=== PATIENT | female | born 1945 | race Caucasian/White ===

== ENCOUNTER 2023-09-18 12:28 | Emergency (ER) | payer OTHER, SELFPAY ==
[2023-09-18 12:30] VITALS: BP 144/57; BMI 27.3
[2023-09-18 13:50] LABS: COVID-19 Antigen Negative (Negative)
[2023-09-18] MEDS: TYLENOL 650 MG PO (14:04)
[2023-09-18] MEDS: DUONEB 3 ML INH (14:05)
[2023-09-18] MEDS: DECADRON 6 MG IV (14:05)
[2023-09-18 14:12] LABS: % Basophils 0.3 % (0-2); % Eosinophils 0.1 % (0-6); % Immature Granulocytes 0.5 % (0-0.5); % Lymphocytes 4.2 % (20.5-51.1); % Monocytes 3.3 % (1.7-9.3); % Neutrophils 91.6 % (42.2-75.2); Absolute Immature Granulocytes 0.1 10^3/uL (0-0.05); Absolute Lymphocytes 0.6 10^3/uL (1.2-3.4); Absolute Monocytes 0.5 10^3/uL (0.1-0.6); Absolute Neutrophils 12.8 10^3/uL (1.4-6.5); Hematocrit 37.4 % (37.0-47.0); Hemoglobin 12.7 g/dL (12.0-16.0); Mean Corpuscular Hgb 31.4 pg (27.0-31.0); Mean Corpuscular Volume 92.6 fL (81.0-99.0); Mean Platelet Volume 9.7 fL (7.4-10.4); Nucleated Red Blood Cells % 0 %; Platelet Count 382 10^3/uL (130-400); Red Blood Cell Count 4.04 10^6/uL (4.20-5.40); Red Cell Dist. Width 13.7 % (11.5-14.5)
[2023-09-18 14:26] LABS: ALT (SGPT) 16 U/L (0-35); AST (SGOT) 23 U/L (14-36); Albumin 3.8 g/dl (3.5-5.0); Alkaline Phosphatase 98 U/L (38-126); Blood Urea Nitrogen 10 mg/dl (7-17); Calcium 9.5 mg/dl (8.4-10.2); Carbon Dioxide 26 mmol/L (22-30); Chloride 103 mmol/L (98-107); Estimated Creatinine Clearance 60 ml/min; Glucose 116 mg/dl (70-99); Potassium 4.2 mmol/L (3.5-5.1); Sodium 135 mmol/L (135-145); Total Bilirubin 0.8 mg/dl (0.2-1.3); Total Protein 7.3 g/dl (6.3-8.2); eGFR > 60.00
--- NOTE | 2023-09-18 15:21 | ED.GENMED ---
History of Present Illness
General
Chief Complaint: Cough
Source: patient
Exam Limitations: none
Time Seen by Provider: 09/18/23 12:51
Nursing documentation reviewed up to this point in time: agreed with
Travel History
Have you had any contact with someone who has COVID-19?: No
Do you have any symptoms of coronavirus? Fever > 100 degrees, chills, cough, shortness of breath, sore throat, loss of taste or smell, muscle aches, or headache?: No
History of Present Illness
History of Present Illness:
pt is a 78 y/oi F with h/o HTN
was in [place] a few weeks ago and got sick while there with sore throat, nasal congestion, cough
she tried to get cough medicine but it was difficult
came home and has continued to cough frequently and bring up thick yellow mucus
she has also had some diarrhea but that stopped a few days ago
she saw her PCP yesterday who thought she sounded like pneumonia and treated her with augmentin. she has only had one dose so far but she really has been coughing and not sleeping an dfeeling wiped out so she was recommended to come in
she has also red crusted eyes and some drainage
she has had low grade fever as wel
denies shortness of breath, chest pain, vomiting
lack of appetite
no h/o copd or wheezing/smoknig
Past History
Past History
ED Past Medical History: HTN and Other
ED Past Surgical History: Orthopedic and Other
Social History
Tobacco: Non-smoker
Living: alone
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
Review of Systems
Review of Systems
Allergies reviewed?: Yes
All Other Systems: Not applicable
Phy Exam
Physical Exam
Physical Exam:
GENERAL: Alert , in no apparent distress
EYE: pupils equal and reactive
NECK: Supple
ENT: o/p clr, mmm.
CARDIAC: Regular rate and rhythm .no edema
LUNGS: rhonchi R > L wheezy spastic cough, productive
no dyspnea
ABDOMEN: Soft, without focal tenderness, no r/g, no cvat, normal bowel sounds
NEUROLOGICAL: Alert and oriented, no focal neuro deficits
SKIN: Warm and dry, skin intact.
MUSCULOSKELETAL: No edema, well perfused. neg franca's sign
PSYCH: Normal and appropriate interaction.
Course
Orders/Labs/Results
Orders:
Orders
09/18/23 12:34
Chest [CR Chest - 2 Views ] Urgent
Comment:
Reason For Exam: cough
09/18/23 13:05
COVID-19 Antigen Urgent
Source: Nasal Swab
Influenza A+B Rapid Molecular Urgent
MELLY Source: Nasal Swab
Specimen Description:
09/18/23 13:49
Sputum Culture [Respiratory Culture/Gram Stain] Urgent
MELLY Source: Sputum
Specimen Description:
Date Specimen was Collected: 09/18/23
Time Specimen was Collected: 13:47
09/18/23 13:56
Dexamethasone Sod Phosphate [Decadron] 6 mg IV NOW STA
Ipratropium/Albuterol Sulfate [Duoneb] 3 ml INH R NOW ONE
09/18/23 14:00
Complete Blood Count/With Diff Urgent
Comprehensive Metabolic Panel Urgent
09/18/23 14:02
Acetaminophen [Tylenol] 650 mg PO NOW STA
09/18/23 15:27
Azithromycin [Zithromax] 500 mg PO NOW STA
09/18/23 15:28
Albuterol [ProAIR HFA INHALER] 2 puff INH R NOW STA
09/18/23 15:32
Albuterol [ProAIR HFA INHALER] 2 puff INH R NOW STA
Abnormal Lab Results
09/18/23
14:00
WBC 14.0 H 10^3/uL
(4.8-10.8)
RBC 4.04 L 10^6/uL
(4.20-5.40)
MCH 31.4 H pg
(27.0-31.0)
Abs Immat Gran (auto) 0.1 H 10^3/uL
(0-0.05)
Absolute Neuts (auto) 12.8 H 10^3/uL
(1.4-6.5)
Absolute Lymphs (auto) 0.6 L 10^3/uL
(1.2-3.4)
Neutrophils % 91.6 H %
(42.2-75.2)
Lymphocytes % 4.2 L %
(20.5-51.1)
Glucose 116 H mg/dl
(70-99)
09/18/23 14:00
09/18/23 14:00
Vital Signs
Initial and Last Documented VS:
Initial Vital Signs
Temp Pulse Resp BP Pulse Ox
99.7 F 105 16 144/57 98
09/18/23 12:30 09/18/23 12:30 09/18/23 12:30 09/18/23 12:30 09/18/23 12:30
Last Documented Vital Signs
Temp Pulse Resp BP Pulse Ox
99.7 F 96 22 131/87 95
09/18/23 12:30 09/18/23 16:00 09/18/23 16:00 09/18/23 16:00 09/18/23 16:00
MDM/Problems Addressed
Differential Diagnosis Includes:
pneumonia, asthmatic bronchitis, less likely PE
MDM/Problems Addressed:
78 y/o F with no h/o chronic lung disease
here with cough and URI sxs x 12 days
did travel long fluight
has not had any chest pain
has a lot of productivitiy of cough
had some diarrhea that got better
went to pcp yesterday finally and got rx for augmentin, took 1 dose so far and medrol dose george
spastic cough and feels lousy/fatigued
on exam borderline fever
mild tachy likely related to fever
normal pulse ox
wheezing and rhonchi in lungs more on R --> suspect early PNA
cxr indep reviewed by me and neg
pt's flu and covid neg
luns sound better after duoneb
she really wants to go home and feels safe doing so
offered admission but she delinced.
at this point, would fully treat for PNA with adding zithromax
probiotic
albuterol inhaler and spacer
continues teroids
given dec x 1 dose here
ambulatory pulse ox normal and pt is not tachypenic
LOW THRESHOLD FOR RETURNING, PT AGREES.
*Critical Care Note
Total Time (30-74mins, 75-104mins- exclusive of procedures): Not Applicable
ED Attending Note
-
Portions of this chart may have been created with voice recognition software.� Occasional wrong word or��sound alike� substitutions may have occurred due to the inherent limitations of voice recognition software.
Discharge Plan
Departure
Patient Disposition: Home (Routine Discharge)
Date of Disposition: 09/18/23
Time of Disposition: 15:22
Patient with high blood pressure during this ER visit?: No
Condition: Fair
Covid-19: Not Applicable
Discharge Problem:
Asthmatic bronchitis
Instructions: Acute Bronchitis, Adult (DC)
Prescriptions:
New
azithromycin [Zithromax] 250 mg tablet
250 mg PO DAILY Qty: 4 0RF
albuterol sulfate [ProAir HFA] 90 mcg/actuation HFA aerosol inhaler
1 puff inhalation Q4HPRN PRN (Reason: shortness of breath) Qty: 6.7 0RF
polymyxin B sulf-trimethoprim 10,000 unit- 1 mg/mL drops
1 drp ophthalmic (eye) QID 5 Days Qty: 10 0RF
No Action
sertraline 100 MG tablet
100 mg PO DAILY
meclizine 25 MG tablet
25 mg PO PRN PRN (Reason: dizziness)
cholecalciferol (vitamin D3) 1,000 UNIT capsule
1,000 unit PO DAILY
Vitamin B12:
3 tab sublingual DAILY
amlodipine 10 MG tablet
10 mg PO DAILY
magnesium 250 MG tablet
500 mg PO DAILY
Referrals:
Rogerio Clement CRNP [Family Provider] - Follow up in 2-3 days
Activity Restrictions/Additional Instructions:
You sound like you could be having an early pneumonia or an asthmatic bronchitis both of which we should treat with antibiotics at this point. Please continue the Augmentin as prescribed. Also to starting tomorrow take Zithromax once a day for 4
days. We gave your first dose today. Continue the steroid pack as prescribed. Use the inhaler 1 or 2 puffs every 4-6 hours through the spacer to help you breathe better.
Hopefully you will see some improvement soon however should you get any worse with worsening fatigue, shortness of breath, chest pain, fever, severe coughing please return to the ER. At that point you may need to be admitted. Your x-ray today does
not show any pneumonia but there could be a lag time where this will be normal and then shows a pneumonia later. That is why were going to treat you with the antibiotics.
Drink fluids and rest. You can take [id number] cough suppressants to help you sleep, the Robitussin DM.
Return for any concerns
Interventions
Interventions:
*Risk Screen - Suicide Last Done: 09/18/23 12:30
*General Assessment Last Done: 09/18/23 13:00
*Neglect/Abuse Screening Last Done: 09/18/23 12:30
ED- Fall Risk Assessment Last Done: 09/18/23 12:30
*ED COVID-19 Vaccine History Last Done: 09/18/23 12:30
*Nursing Disposition Last Done: 09/18/23 16:01
ED- Pulmonary Assessment Last Done: 09/18/23 13:08
Discharge Date and Time
Discharge Date/Time: 09/18/23 16:02
Print Language: HUNGARIAN
[2023-09-18] MEDS: ZITHROMAX 500 MG PO (15:45)
[2023-09-18] MEDS: ProAIR HFA INHALER 2 PUFF INH (15:46)
[2023-09-18 16:00] VITALS: BP 131/87
== END 2023-09-18 16:02 | disposition home or self-care (01) ==
LOC: EMR 12:28
PROVIDERS: Physician Assistant; EMERGENCY PHYSICIAN Emergency Medicine; FAMILY PHYSICIAN Nurse Practitioner Family
DX: J45.901 Unspecified asthma with (acute) exacerbation (principal); R50.9 Fever, unspecified; Z11.52 Encounter for screening for COVID-19; I10 Essential (primary) hypertension; K57.90 Diverticulosis of intestine, part unspecified, without perforation or abscess without bleeding; M06.9 Rheumatoid arthritis, unspecified; F32.A Depression, unspecified; Z91.048 Other nonmedicinal substance allergy status
CPT/HCPCS: 99284; 96374; 94640 ×2; 71046; 80053; 85025; 87070; 87205; 87502; 87811

== ENCOUNTER 2023-09-20 14:06 | Emergency (ER) | payer OTHER, SELFPAY ==
[2023-09-20 14:11] VITALS: BP 137/60
--- NOTE | 2023-09-20 15:00 | ED.GENMED ---
History of Present Illness
General
Chief Complaint: Prescription Refill
Time Seen by Provider: 09/20/23 15:00
Travel History
Have you had any contact with someone who has COVID-19?: No
Do you have any symptoms of coronavirus? Fever > 100 degrees, chills, cough, shortness of breath, sore throat, loss of taste or smell, muscle aches, or headache?: No
History of Present Illness
History of Present Illness:
HPI: The patient presents due to concerns that she needs more of her expectorant that she has at home. She was under the impression that this is a prescription that was prescribed here. However in review of the records from the other day, it is
noted that the expectorant that she was talking about was just an [id number]-[id number] medication that she received from her pharmacy. She called her primary care doctor initially thinking that she needed a prescription however the primary care office
sent her in here for further evaluation. Overall she is 'no better, no worse'. She does not feel that she needs to be kept here in the hospital. She continues to feel somewhat wiped out.
EXAM:
GENERAL: Well appearing in no distress
HEENT: Moist oral mucosa
CARDIOVASCULAR: No murmurs, normal heart rate, regular rhythm, No chest wall tenderness
PULMONARY: No respiratory distress, breath sounds are clear and equal with exception of scant wheeze
ABDOMEN: Soft with no peritoneal signs, no tenderness
NEUROLOGIC: Excellent strength all extremities, no coordination deficits
PSYCHIATRIC: Appropriate mental status, normal insight and judgement
EXTREMITIES: Nontender, no edema, moves all extremities equally
SKIN: No rash, no lesions
TIME OF INITIAL ENCOUNTER: 3:05 PM
NUMBER AND COMPLEXITY OF PROBLEMS ADDRESSED AT THE ENCOUNTER
� Chronic conditions affecting care: High blood pressure, depression, osteoarthritis
� Acute Exacerbation and/or Progression of Chronic Illness: This is an ongoing but acute problem
� Differential Diagnosis includes: Viral bronchitis, viral pneumonia, bacterial pneumonia, nonspecific cough
AMOUNT AND/OR COMPLEXITY OF DATA TO BE REVIEWED AND ANALYZED
� I performed an independent evaluation of and my interpretation is:
EKG:
CT:
X-rays: Imaging reviewed from 2 days ago
Laboratory Studies: Labs reviewed from 2 days ago
Other:
� Review of other/old records: I reviewed labs from when patient was here 2 days ago�at that time white count was 14.0, chemistries unremarkable. 2 days ago, the patient also was placed on azithromycin in addition to the
Augmentin that the patient was already on for treatment of pneumonia, however chest x-ray 2 days ago was read as 'no active cardiopulmonary disease'.
� Clinical information was obtained by an independent historian: I spoke to the at bedside
� Prescriptions/Medications Considered but not given:
� Further testing considered but not performed: I offered and considered chest x-ray however in discussion with the patient we agreed to hold off on further testing at this time as the patient is already on treatment for
pneumonia.
RISK OF COMPLICATIONS AND/OR MORBIDITY OR MORTALITY OF PATIENT MANAGEMENT
� Social determinants of health affecting care: Lives at home
� Discussion with other providers:
� Escalation of care including admission/observation vs risk of discharge considered: The patient came here feeling that she needed a prescription for an expectorant but it is realized that she was taking an [id number]
medication. Otherwise, she would not of come in here for worsening symptoms. She is not tachycardic, she is not febrile, her vital signs not consistent with sepsis. On reassessment at 4:20 PM, the patient reports improvement after a DuoNeb was
given. I encouraged her to increase the use of MDI. She feels comfortable with going home.
Past History
Past History
ED Past Medical History: HTN and Other
ED Past Surgical History: Orthopedic and Other
Social History
Tobacco: Non-smoker
Living: alone
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
Phy Exam
Physical Exam
Physical Exam:
See HPI
Course
Orders/Labs/Results
Orders:
Orders
09/20/23 15:15
Ipratropium/Albuterol Sulfate [Duoneb] 3 ml INH R NOW ONE
Vital Signs
Initial and Last Documented VS:
Initial Vital Signs
Temp Pulse Resp BP Pulse Ox
98.7 F 69 22 137/60 96
09/20/23 14:11 09/20/23 14:11 09/20/23 14:11 09/20/23 14:11 09/20/23 14:11
Last Documented Vital Signs
Temp Pulse Resp BP Pulse Ox
98.7 F 69 22 137/60 96
09/20/23 14:11 09/20/23 14:11 09/20/23 14:11 09/20/23 14:11 09/20/23 14:11
*Critical Care Note
Total Time (30-74mins, 75-104mins- exclusive of procedures): Not Applicable
ED Attending Note
-
Portions of this chart may have been created with voice recognition software.� Occasional wrong word or��sound alike� substitutions may have occurred due to the inherent limitations of voice recognition software.
Discharge Plan
Departure
Patient Disposition: Home (Routine Discharge)
Date of Disposition: 09/20/23
Time of Disposition: 16:22
Patient with high blood pressure during this ER visit?: Yes
Discharge Problem:
RAD (reactive airway disease)
Instructions: Acute Bronchitis, Adult (DC)
Prescriptions:
No Action
sertraline 100 MG tablet
100 mg PO DAILY
meclizine 25 MG tablet
25 mg PO PRN PRN (Reason: dizziness)
cholecalciferol (vitamin D3) 1,000 UNIT capsule
1,000 unit PO DAILY
Vitamin B12:
3 tab sublingual DAILY
amlodipine 10 MG tablet
10 mg PO DAILY
magnesium 250 MG tablet
500 mg PO DAILY
azithromycin [Zithromax] 250 mg tablet
250 mg PO DAILY Qty: 4 0RF
albuterol sulfate [ProAir HFA] 90 mcg/actuation HFA aerosol inhaler
1 puff inhalation Q4HPRN PRN (Reason: shortness of breath) Qty: 6.7 0RF
polymyxin B sulf-trimethoprim 10,000 unit- 1 mg/mL drops
1 drp ophthalmic (eye) QID 5 Days Qty: 10 0RF
Referrals:
Karen Padgett CRNP [Family Provider] -
Interventions
Interventions:
*Risk Screen - Suicide Last Done: 09/20/23 14:11
*General Assessment Last Done: 09/20/23 14:11
*Neglect/Abuse Screening Last Done: 09/20/23 14:11
Discharge Date and Time
Print Language: YAKUT
[2023-09-20] MEDS: DUONEB 3 ML INH (16:10)
== END 2023-09-20 16:44 | disposition home or self-care (01) ==
LOC: EMR 14:06
PROVIDERS: EMERGENCY PHYSICIAN Emergency Medicine; FAMILY PHYSICIAN Nurse Practitioner Family
DX: J45.901 Unspecified asthma with (acute) exacerbation (principal); I10 Essential (primary) hypertension; M19.90 Unspecified osteoarthritis, unspecified site; F32.A Depression, unspecified; J18.9 Pneumonia, unspecified organism; Z91.048 Other nonmedicinal substance allergy status
CPT/HCPCS: 99283; 94640

== ENCOUNTER → 2023-10-12 14:51 | Outpatient (REF) | payer OTHER, SELFPAY | LOC: WDC 14:51 | PROVIDERS: ATTENDING PHYSICIAN Nurse Practitioner Family | DX: Z12.31 Encounter for screening mammogram for malignant neoplasm of breast (principal) | CPT/HCPCS: 77063; 77067 ==

== ENCOUNTER → 2024-02-12 11:10 | Outpatient (REF) | payer OTHER, SELFPAY | LOC: MRI 3T 11:10 | PROVIDERS: ATTENDING PHYSICIAN Specialist; FAMILY PHYSICIAN Nurse Practitioner Family | DX: M17.12 Unilateral primary osteoarthritis, left knee (principal); M25.562 Pain in left knee | CPT/HCPCS: 73721 ==

== ENCOUNTER → 2024-05-01 18:28 | Outpatient (REF) | payer OTHER, SELFPAY | LOC: RAD 18:28 | PROVIDERS: ATTENDING PHYSICIAN Nurse Practitioner Family | DX: U07.1 COVID-19 (principal) | CPT/HCPCS: 71046 ==

== ENCOUNTER → 2024-05-18 12:56 | Outpatient (REF) | payer OTHER, SELFPAY | LOC: RAD 12:56 | PROVIDERS: ATTENDING PHYSICIAN Nurse Practitioner Family | DX: I86.8 Varicose veins of other specified sites (principal) | CPT/HCPCS: 93922; 93925 ==

== ENCOUNTER → 2024-10-13 14:25 | Outpatient (REF) | payer OTHER, SELFPAY | LOC: HWWDC 14:25 | PROVIDERS: ATTENDING PHYSICIAN Family Medicine | DX: Z12.31 Encounter for screening mammogram for malignant neoplasm of breast (principal) | CPT/HCPCS: 77063; 77067 ==

== ENCOUNTER 2025-04-25 07:21 | Outpatient (RCR) | payer OTHER, SELFPAY | END 2025-04-25 23:59 | disposition home or self-care (01) | LOC: RPT 07:21 | PROVIDERS: ATTENDING PHYSICIAN Specialist; FAMILY PHYSICIAN Family Medicine | DX: Z47.1 Aftercare following joint replacement surgery (principal); M17.12 Unilateral primary osteoarthritis, left knee; R26.2 Difficulty in walking, not elsewhere classified; M62.81 Muscle weakness (generalized); M25.562 Pain in left knee; Z73.6 Limitation of activities due to disability; Z96.653 Presence of artificial knee joint, bilateral | CPT/HCPCS: 97010; 97110; 97140; 97162 ==

== ENCOUNTER 2025-05-29 08:57 | Outpatient (RCR) | payer OTHER, SELFPAY | END 2025-05-29 23:59 | disposition home or self-care (01) | LOC: RPT 08:57 | PROVIDERS: ATTENDING PHYSICIAN Specialist; FAMILY PHYSICIAN Family Medicine | DX: Z47.1 Aftercare following joint replacement surgery (principal); M17.12 Unilateral primary osteoarthritis, left knee; R26.2 Difficulty in walking, not elsewhere classified; M62.81 Muscle weakness (generalized); M25.562 Pain in left knee; Z73.6 Limitation of activities due to disability; Z96.653 Presence of artificial knee joint, bilateral | CPT/HCPCS: 97010; 97110; 97112; 97530 ==